=== PATIENT | male | born 1970 | race Caucasian/White ===

== ENCOUNTER → 2018-04-22 | Outpatient (CLI) | payer BC ==
[~2018-04-22] VITALS: Ht 182.9 cm; Wt 81.6 kg
[~2018-04-22] MED LIST: CATHETER FLUSH 10 ML SYR IV PRN; REGADENOSON 0.4 MG/5 ML SYR (LEXISCAN) IV ONE
[2018-04-22 12:43] VITALS: BP 179/104
[2018-04-22 12:45] VITALS: BP 151/99
--- NOTE | 2018-04-22 21:36 | STRESS TEST ---
DATE OF SERVICE: 04/22/2018 RESTING AND POST REGADENOSON TECHNETIUM 99M TETROFOSMIN SPECT CT IMAGING ORDERING PHYSICIAN: Dr. Gandhi. PRIMARY CARE PHYSICIAN: Dr. Monteiro. CLINICAL DIAGNOSIS: Chest discomfort. Baseline images were carried out after injection of 10.91 mCi of technetium 99m Tetrofosmin. This was followed by 0.4 mg regadenoson and 31.1 mCi technetium-99m Tetrofosmin for stress imaging. The electrocardiogram shows sinus rhythm at baseline and it did not change significantly with regadenoson infusion. The patient reported flushing and nausea following regadenoson infusion, which resolved in a few minutes. Review of images at rest and following stress does not indicate any significant perfusion defects consistent with significant myocardial ischemia or infarction. Gated images show normal global left ventricular systolic function with normal regional wall motion. Left ventricular ejection fraction is calculated to be 63%. Left ventricular end diastolic volume 62 mL. TID is absent (1.16). CONCLUSIONS: 1. No evidence of any significant myocardial ischemia or infarction on this study. 2. Normal regional wall motion. 3. Normal global left ventricular systolic function with a calculated ejection fraction of 63%. Job ID: [id number] DocumentID: [id number] Dictated Date: 04/22/2018 18:03:30 Drafter Detail Date: 04/22/2018 21:35:30 Dictated By: TIMOTHY GANDHI MD, MA, FACP, FACC,
== END ==
LOC: CARD 11:24
PROVIDERS: ATTEND Internal Medicine Cardiovascular Disease
DX: R07.89 Other chest pain (principal); I10 Essential (primary) hypertension; R06.02 Shortness of breath; Z82.49 Family history of ischemic heart disease and other diseases of the circulatory system
CPT/HCPCS: 78452; 93017

== ENCOUNTER → 2018-04-23 | Outpatient (CLI) | payer BC | LOC: EDUNIT# 10:00 → CARD 10:09 | PROVIDERS: ATTEND Internal Medicine Cardiovascular Disease | DX: R07.89 Other chest pain (principal); I10 Essential (primary) hypertension; R06.02 Shortness of breath; Z82.49 Family history of ischemic heart disease and other diseases of the circulatory system | CPT/HCPCS: 93306 ==

== ENCOUNTER → 2018-06-09 | Outpatient (CLI) | payer BC | LOC: CARD 14:58 | PROVIDERS: ATTEND Nurse Practitioner Family | DX: R00.2 Palpitations (principal) | CPT/HCPCS: 93225; 93226 ==